=== PATIENT | female | born 1960 | race Caucasian/White ===

== ENCOUNTER 2021-01-01 09:04 | Outpatient (CLI) | payer BC, SELFPAY ==
--- NOTE | ~2021-01-01 | MM_ITS ---
EXAMINATION: MM screening [facility] BI w asher HISTORY: Screening mammogram TECHNIQUE: Craniocaudal and mediolateral oblique 3-D tomosynthesis images were obtained and synthetic 2-D images were generated. CAD analysis was submitted and interpreted. COMPARISON: Prior mammograms dating back to 09/14/2011 BREAST PARENCHYMAL COMPOSITION: There are scattered areas of fibroglandular density. FINDINGS: There is no evidence of suspicious mass, calcification, or architectural distortion to sugg est malignancy in either breast. There has been no suspicious interval change. IMPRESSION: 1. No mammographic evidence of malignancy. 2. Recommend routine screening mammography in one year. BI-RADS Category 1: Negative Reviewed, dictated and finalized at location A.
== END 2021-01-01 09:05 | disposition home or self-care (01) ==
LOC: ANHIMG 09:07
PROVIDERS: PCP Family Medicine; Visit Provider Nurse Practitioner
DX: Z12.31 Encounter for screening mammogram for malignant neoplasm of breast (principal)
CPT/HCPCS: 77063; 77067

== ENCOUNTER 2021-02-18 00:44 | Day surgery (SDC) | payer BC, SELFPAY ==
[2021-02-07 14:23] VITALS: BMI 32.5
--- NOTE | 2021-02-17 13:33 | WPDANESEPPF ---
Anes - Initial Pre Proc Eval Procedure: Operation Date: 02/18/21 08:00 Proposed Procedures p Screening Colonoscopy - Axel Truong MD Date/Time: 02/17/21 13:33 Surgeon: Axel Truong MD Pre Op Diagnosis: neoplasm screening Patient Data Age: 60 Gender: F Height: 1.69 m Weight: 93 kg Allergies Allergy/AdvReac Type Severity Reaction Status Date / Time Kiwi Allergy Severe THROAT Uncoded 02/18/21 06:45 SWELLING, ORAL RASH Home Medications Medication Instructions Recorded Confirmed Type arginine HCl (L-arginine) 1,000 mg 500 mg PO BID tablet 05/31/19 02/18/21 History tablet aspirin 81 mg tablet,delayed 81 mg PO ONCE tablet 05/31/19 02/18/21 History release metoprolol tartrate 25 mg tablet 25 mg PO BID tablet 05/31/19 02/18/21 History ergocalciferol (vitamin D2) 50,000 unit PO WEEKLY 02/07/21 02/18/21 History losartan-hydrochlorothiazide 1 tablet PO DAILY 02/07/21 02/18/21 History Patient hx anesthesia problems: none Family hx anesthesia problems: none PMFSH Past Medical History Medical History (Updated 02/17/21 @ 13:33 by Clarence Elias DO) Asthma Chronic pain of right knee Dyslipidemia Endothelial dysfunction of coronary artery Environmental allergies Essential (primary) hypertension History of colon polyps Hx of hemorrhoids 1984 DANYELLE (obstructive sleep apnea) CPAP Rosacea Stress fracture Right Knee Surgical History Surgical History History of bunionectomy 03/2018 - Left History of removal of cyst removed from Right ovary - 1988 Hx of cardiac cath 06/2017 Hx of hemorrhoidectomy 1980s Hx of removal of ovary Right - 1991 Family History Family History Grandparent Diabetes mellitus Family history of cardiovascular disease Sibling Hypertension Mother Family history of malignant neoplasm of ovary Social History Social History Smoking status: Never smoker Second hand tobacco smoke exposure: No Alcohol intake: current Drinks per week: 4 Alcohol use details: DRINKS Substance use: never Substance use type: marijuana Other substance usage details: COLLEGE Living arrangements: with family Additional living arrangements comments: Gender identity (if verbalized by the patient): Female Spiritual care concerns: No Anes - Eval Final PreProcedure Day of Procedure 02/17/21 13:33 Patient weight: obese Heart: regular rate and rhythm Lungs: clear to auscultation and normal air movement Airway: Mallampati scale class II Neurological: alert and oriented Last oral intake: >/= 8 hours ASA classification: III Emergent: no Anesthetic plan: proceed Anesthesia type and monitoring: general GIVS and standard monitoring Informed Consent: The patient's anesthetic plan and its attendant risks and benefits were discussed with the patient/family/POA. Questions were solicited and answers provided to the satisfaction of the patient/family/POA.
[2021-02-18 06:47] VITALS: BP 109/78; PULSE 56; RESP 17; TEMP 35.9; O2SAT 97; BMI 33.1
[2021-02-18] MEDS: LACTATED RINGERS 1,000 ML 150 ML IV CONT (06:52)
--- NOTE | 2021-02-18 08:19 | PM.HPGS ---
History of Present Illness History of Present Illness Consent: Risks, benefits, and alternatives have been discussed and questions answered. Patient agrees to proceed with procedure. Chief complaint: neoplasm screening Narrative: Kylee Davis is a 60 year old female here for screening colonoscopy, last one 2013 Review of Systems Constitutional: Constitutional: Denies headache(s) and Denies weakness Eyes: Eyes: Denies blurry vision ENT: Reports Normal hearing present, Denies headache(s) and Denies neck pain Cardiovascular: Cardiovascular: Denies chest pain and Denies dyspnea Respiratory: Respiratory: Denies dyspnea Gastrointestinal: Gastrointestinal: Reports no additional gastrointestinal complaints Genitourinary: Genitourinary: Denies dysuria Musculoskeletal: Musculoskeletal: Denies neck pain Integumentary/Breasts: Skin/Breast: Denies dry skin Neurologic: Reports Normal hearing present, Denies headache(s) and Denies weakness Psychiatric: Psychiatric: Denies anxiety Endocrine: Endocrine: Denies change in body appearance Hematologic/Lymphatic: Hematologic/Lymphatic: Denies easy bleeding Allergic/Immunologic: Allergic/Immunologic: Denies urticaria PMFSH Past Medical History Medical History (Updated 02/18/21 @ 08:20 by Axel Truong MD) Asthma Chronic pain of right knee Colon cancer screening Dyslipidemia Endothelial dysfunction of coronary artery Environmental allergies Essential (primary) hypertension History of colon polyps Hx of hemorrhoids 1984 DANYELLE (obstructive sleep apnea) CPAP Rosacea Stress fracture Right Knee Surgical History Surgical History History of bunionectomy 03/2018 - Left History of removal of cyst removed from Right ovary - 1988 Hx of cardiac cath 06/2017 Hx of hemorrhoidectomy Hx of removal of ovary Right - 1991 Family History Family History Grandparent Diabetes mellitus Family history of cardiovascular disease Sibling Hypertension Mother Family history of malignant neoplasm of ovary Social History Social History Smoking status: Never smoker Second hand tobacco smoke exposure: No Alcohol intake: current Drinks per week: 4 Alcohol use details: DRINKS Substance use: never Substance use type: marijuana Other substance usage details: COLLEGE Living arrangements: with family Additional living arrangements comments: Gender identity (if verbalized by the patient): Female Spiritual care concerns: No Meds Home Medications and Allergies Home Medications Medication Instructions Recorded Confirmed Type arginine HCl (L-arginine) 1,000 mg 500 mg PO BID tablet 05/31/19 02/18/21 History tablet aspirin 81 mg tablet,delayed 81 mg PO ONCE tablet 05/31/19 02/18/21 History release metoprolol tartrate 25 mg tablet 25 mg PO BID tablet 05/31/19 02/18/21 History ergocalciferol (vitamin D2) 50,000 unit PO WEEKLY 02/07/21 02/18/21 History losartan-hydrochlorothiazide 1 tablet PO DAILY 02/07/21 02/18/21 History Allergies Allergy/AdvReac Type Severity Reaction Status Date / Time Kiwi Allergy Severe THROAT Uncoded 02/18/21 06:45 SWELLING, ORAL RASH Vital Signs Vital Signs - 24 hr 02/18/21 06:47 Temperature 96.7 F L Pulse Rate 56 L Respiratory Rate 17 Blood Pressure 109/78 Pulse Oximetry 97 Exam Const: General: comfortable and no acute distress HENMT: General nose exam: Normal nares present Eyes: General: appearance normal, both eyes and all related structures Neck: Neck: no JVD Resp: Auscultation: clear to auscultation bilaterally Cardio: Rate: regular rate Rhythm: regular rhythm GI: Inspection: non-distended GI Palp: Yes Soft to palpation Skin: General skin exam: normal color Neuro:
[2021-02-18 08:37] VITALS: BP 100/51; PULSE 67; RESP 27; O2SAT 100
[2021-02-18 08:47] VITALS: BP 140/68; PULSE 44; RESP 18; O2SAT 100
[2021-02-18 08:57] VITALS: BP 136/75; PULSE 46; RESP 18; O2SAT 100
== END 2021-02-18 09:13 | disposition home or self-care (01) ==
PROVIDERS: PCP Family Medicine; Visit Provider Internal Medicine Gastroenterology
PROC: 0DJD8ZZ Inspection of Lower Intestinal Tract, Via Natural or Artificial Opening Endoscopic (ICD-10-PCS; CPT 45378; principal; 2021-02-18 08:00)
DX: Z12.11 Encounter for screening for malignant neoplasm of colon (principal); K57.30 Diverticulosis of large intestine without perforation or abscess without bleeding; K63.5 Polyp of colon; K64.8 Other hemorrhoids; J45.909 Unspecified asthma, uncomplicated; E78.5 Hyperlipidemia, unspecified; I10 Essential (primary) hypertension; G47.33 Obstructive sleep apnea (adult) (pediatric); L71.9 Rosacea, unspecified; F12.90 Cannabis use, unspecified, uncomplicated; Z79.82 Long term (current) use of aspirin; E66.9 Obesity, unspecified; Z68.33 Body mass index [BMI] 33.0-33.9, adult
CPT/HCPCS: 45385; 88305; J2704; J7120

== ENCOUNTER → 2022-12-22 09:56 | Outpatient (CLI) | payer BC, SELFPAY ==
--- NOTE | ~2022-12-22 | US_ITS ---
EXAMINATION: US pelvic complete w TV DATE: 12/22/2022 10:24 INDICATION: Family history of ovarian cancer TECHNIQUE: Multiple transabdominal and endovaginal sonographic images of the pelvis were obtained. COMPARISON: 04/26/2015 FINDINGS: The uterus measures 6.8 x 2.9 x 4.3 cm. The endometrial complex measures 3 mm. The left ova ry is surgically absent. No left adnexal abnormality is seen. The right ovary measures 2.0 x 1.4 x 0. 7 cm. There is normal vascular flow in the right ovary. There is no free fluid in the pelvis. IMPRESSION: 1. Unremarkable pelvic ultrasound post left oophorectomy. Reviewed, dictated and finalized at location L.
== END ==
PROVIDERS: PCP Family Medicine; Visit Provider Nurse Practitioner
DX: Z80.41 Family history of malignant neoplasm of ovary (principal)
CPT/HCPCS: 76830; 76856

== ENCOUNTER 2023-02-11 07:43 | Outpatient (CLI) | payer BC, SELFPAY ==
--- NOTE | ~2023-02-11 | MM_ITS ---
EXAMINATION: MM screening [facility] BI w asher HISTORY: Screening TECHNIQUE: Craniocaudal and mediolateral oblique 3-D tomosynthesis images were obtained and synthetic 2-D images were generated. CAD analysis was submitted and interpreted. COMPARISON: Comparison to multiple prior studies sequentially, with oldest reviewed study dated 12/11. BREAST PARENCHYMAL COMPOSITION: There are scattered areas of fibroglandular density. FINDINGS: There is no evidence of suspicious mass, calcification, or architectural distortion to sugg est malignancy in either breast. There has been no suspicious interval change. IMPRESSION: 1. No mammographic evidence of malignancy. 2. Recommend routine screening mammography in one year. BI-RADS Category 1: Negative Reviewed, dictated and finalized at location A.
== END 2023-02-11 07:44 | disposition home or self-care (01) ==
PROVIDERS: PCP Family Medicine; Visit Provider Nurse Practitioner
DX: Z12.31 Encounter for screening mammogram for malignant neoplasm of breast (principal)
CPT/HCPCS: 77063; 77067

== ENCOUNTER 2024-08-30 10:21 | Emergency (ER) | payer MEDICARE, SELFPAY ==
--- NOTE | ~2024-08-30 | XR_ITS ---
EXAMINATION: XR chest 2V DATE: 08/30/2024 10:45 INDICATION: Cough. TECHNIQUE: Frontal and lateral views of the chest were obtained. COMPARISON: None. FINDINGS: There is no pneumonia, pleural effusion, or pneumothorax. Cardiomegaly is noted. IMPRESSION: 1. Cardiomegaly. Reviewed, dictated and finalized at location A. MOGRAPH COMPUTER IMPRESSION: 1. Cardiomegaly.
[2024-08-30 10:30] VITALS: BP 148/81; PULSE 71; RESP 16; TEMP 36.2; O2SAT 97
--- NOTE | 2024-08-30 10:36 | ED_ITS ---
HPI - URI/Sore Throat General Chief Complaint: Upper Respiratory Infection Stated Complaint: COUGH Source: patient and RN notes reviewed Mode of arrival: ambulatory Limitations: no limitations History of Present Illness HPI Narrative: Patient is a 64-year-old female who presents to the [facility] with complaints of cough. States that the cough started on Wednesday and has continued to worsen severity. She reports a frequent nonproductive cough that is occasionally productive. She denies chest pain or shortness of breath. Denies nasal congestion, nasal drainage, sore throat. She does report a mild intermittent headache. Denies known fever. Unsure of any known sick contacts. Related Data Home Medications ?Medication ?Instructions ?Recorded ?Confirmed ?Last Taken ?Type arginine HCl (L-arginine) 1,000 mg 500 mg PO BID 05/31/19 11/03/22 02/17/21 History tablet metoprolol tartrate 25 mg tablet 25 mg PO BID 05/31/19 11/03/22 02/18/21 06:00 History aspirin 81 mg tablet,delayed 81 mg PO DAILY 04/30/21 11/03/22 Unknown History release fexofenadine 180 mg tablet 180 mg PO DAILY PRN 11/03/22 11/03/22 Unknown History ([facility] All[facility]) doxycycline hyclate 20 mg tablet 20 mg PO BID 03/21/24 Unknown History mupirocin 2 % topical ointment 1 applic topical PRN 03/21/24 Unknown History Allergies Allergy/AdvReac Type Severity Reaction Status Date / Time losartan AdvReac Mild Cough Verified 08/30/24 10:34 Kiwi Allergy Severe THROAT Uncoded 08/30/24 10:34 SWELLING, ORAL RASH Review of Systems Review of Systems: CONSTITUTIONAL: Denies fever, chills, or sweats. EYES: Denies visual changes, redness, or discharge. ENT: Denies otalgia and sore throat CARDIOVASCULAR: Denies chest pain, palpitations, or edema. RESPIRATORY: Reports cough but denies dyspnea. GASTROINTESTINAL: Denies abdominal pain, nausea, vomiting, or diarrhea. GENITOURINARY: Denies dysuria or hematuria. SKIN: Denies rash or itching. MUSCULOSKELETAL: Denies back pain, joint pain, or myalgia. NEUROLOGIC: Reports headache but denies numbness or weakness. Pertinent positives per HPI. [facility] Past Medical History Medical History Osteoarthritis Trigeminal herpes zoster (~08/2022) Left Mandibular dermatome Colon cancer screening Asthma History of colon polyps Endothelial dysfunction of coronary artery Environmental allergies DANYELLE (obstructive sleep apnea) CPAP Chronic pain of right knee Dyslipidemia Essential (primary) hypertension Stress fracture Right Knee Hx of hemorrhoids 1985 Rosacea Surgical History Surgical History History of knee replacement procedure of left knee (~2023) History of total right [facility]20[facility]x of hemorrhoidectomy (~[facility]) Hx of removal of ovary (~1991) Right - 1991 History of removal of cyst (~1988) removed from Right ovary - 1988 Hx of cardiac cath (~06/2017) 06/2017 History of bunionectomy (~03/2018) 03/2018 - Left Family History Family History Grandparent Diabetes mellitus Family history of cardiovascular disease Sibling Hypertension Mother Family history of malignant neoplasm of ovary Social History Social History Smoking status: Former smoker (quit @ 18) Second hand tobacco smoke exposure: No Alcohol intake: current Drinks per week: 4 Alcohol use details: DRINKS Substance use: never Substance use type: marijuana Other substance usage details: COLLEGE Lack of Transportation: No Lack of Food: Never True Current Housing: I Have Housing Concerned About Future Housing: No Difficulty Paying Gas/Electric Bills: No Difficulty Paying for Meds: No Currently Unemployed: No Education: Bachelor's Degree Difficulty w/ Childcare or Family Care: No Living arrangements: with family Additional living arrangements comments: Occupation/Education: occupation Gender identity (if verbalized by the patient): Female Sexual Orientation (if Verbalized by the Patient): Straight or Heterosexual Spiritual care concerns: No Comments At the time of my signature, I reviewed and agree with the nursing past medical, surgical, social, and family history. There is no relevant family history pertinent to the patient complaint. Exam Narrative: GENERAL: This is a well-nourished, well-developed patient, in no apparent distress. HEAD: normocephalic, atraumatic. EYES: Sclera clear/white. Vision is grossly intact. EARS: External ears normal, auditory canals clear and without drainage, TMs normal without perforation. Hearing grossly intact. NOSE: External nose normal with no obvious nasal discharge, nares without redness, no rhinorrhea. THROAT: Mucous membranes moist, posterior pharynx clear. NECK: Neck supple, non-tender without lymphadenopathy, masses or thyromegaly. CARDIOVASCULAR: Regular rate and rhythm without murmurs, gallops, or rubs. RESPIRATORY: Clear to auscultation. Breath sounds equal bilaterally. No wheezes, rales, or rhonchi. GASTROINTESTINAL: Abdomen soft, non-tender, nondistended. Bowel sounds are active. No hepato-splenomegaly, or palpable masses. No guarding. SKIN: warm, intact with no suspicious lesions or rash, good texture and turgor. NEURO: awake, alert, and oriented to person, place and time. There were no obvious focal neurologic abnormalities. Course Course Level of Care: Express Care Visit Vital Signs Vital signs: Vital Signs Temperature 97.2 F L 08/30/24 10:30 Pulse Rate 71 08/30/24 10:30 Respiratory Rate 16 08/30/24 10:30 Blood Pressure 148/81 H 08/30/24 10:30 Pulse Oximetry 97 08/30/24 10:30 Oxygen Delivery Room Air 08/30/24 10:30 Temperature 97.2 F L 08/30/24 10:30 Pulse Rate 71 08/30/24 10:30 Respiratory Rate 16 08/30/24 10:30 Blood Pressure 148/81 H 08/30/24 10:30 Pulse Oximetry 97 08/30/24 10:30 Oxygen Delivery Room Air 08/30/24 10:30 Reviewed MDM - URI/Sore Throat MDM Narrative Medical decision making narrative: Take steroids as directed. May use the inhaler every 4-6 hours as needed for coughing. Increase fluids at home. Avoid any and all smoke. May use a humidifier in the bedroom. Increase your Vitamin C. Follow-up with personal physician in 2-5 days. Differential Diagnosis Differential diagnosis: Likely upper respiratory infection, viral infection, influenza and other ( COVID, pneumonia) Lab Data Attestation: I reviewed the patient's lab results. Labs: Lab Results 08/30/24 Range/Units 10:53 POC Influenza A Ag Negative (Negative) POC Influenza B Ag Negative (Negative) POC SARS CoV-2 Ag Negative (Negative) Imaging Data Attestation: I personally reviewed and interpreted this imaging study as follows: Radiologist's impression: Express [facility] [facility] [place] [address] XRay Report Signed Patient: Kylee Davis : 1960 MR#: [id number] Age: 64 Acct:[id number] Loc: [id number] ADM Date: 08/30/24Attending Dr: Ordering Physician: Anai Jang APRN Date of Service: 08/30/24 Procedure(s): XR chest 2V Accession Number(s): [id number] cc: Anai Jang APRN; Bony Shelton MD~ EXAMINATION: XR chest 2V DATE: 08/30/2024 10:45 INDICATION: Cough. TECHNIQUE: Frontal and lateral views of the chest were obtained. COMPARISON: None. FINDINGS: There is no pneumonia, pleural effusion, or pneumothorax. Cardiomegaly is noted. IMPRESSION: 1. Cardiomegaly. Reviewed, dictated and finalized at location A. YCOMB DECAPPER Please be advised this is a medical document. It is intended for [id number] communication. It is written in medical language and may contain unfamiliar abbreviations or verbiage. Medical documents are intended to carry relevant information, facts as evident, and the clinical opinion of the practitioner at the time of the encounter. This report may have been done utilizing a voice recognition system. Attempts have been made to correct errors. However, there may be uncorrected grammatical, spelling, and recognition errors present. The file time of this note does not necessarily represent the time of service. Dictated By: Augie Lind MD 08/30/24 1046 Signed By: <Electronically signed by Augie Lind MD in OV> 08/30/24 1047 Critical Care Time Critical Care Time Critical Care Time: No Discharge Plan Discharge Clinical Impression: Acute viral bronchitis Patient Disposition: Home, Self-Care Condition: Stable Instructions: Acute Bronchitis (ED) Additional Instructions: Take steroids as directed. May use the inhaler every 4-6 hours as needed for coughing. Increase fluids at home. Avoid any and all smoke. May use a humidifier in the bedroom. Increase your Vitamin C. Follow-up with personal physician in 2-5 days. Patient Language: Wallisian Prescriptions: New prednisone 50 mg tablet 50 mg PO DAILY 5 Days Qty: 5 0RF albuterol sulfate [Ventolin HFA] 90 mcg/actuation HFA aerosol inhaler 2 puff inhalation QID PRN (Reason: shortness of breath or wheezing) Qty: 8.5 0RF benzonatate 100 mg capsule 100 mg PO BID PRN (Reason: cough) Qty: 20 0RF No Action metoprolol tartrate 25 mg tablet 25 mg PO BID arginine HCl (L-arginine) 1,000 mg tablet 500 mg PO BID Rx Instructions: per cardioloist aspirin 81 mg tablet,delayed release (DR/EC) 81 mg PO DAILY fexofenadine [[facility] Allergy] 180 mg tablet 180 mg PO DAILY PRN doxycycline hyclate 20 mg tablet 20 mg PO BID mupirocin 2 % ointment 1 applic topical PRN rosuvastatin [Crestor] 10 mg tablet 10 mg PO QHS Qty: 90 1RF amlodipine 5 mg tablet 5 mg PO DAILY Qty: 90 0RF Follow-up/Referrals: Sanam Shelton MD [Primary Care Provider] - Time of Disposition: 10:57
[2024-08-30 10:54] LABS: EDCOVIDSCREEN Negative (Negative); EDINFLUASCREEN Negative (Negative); EDINFLUBSCREEN Negative (Negative)
== END 2024-08-30 11:00 | disposition home or self-care (01) ==
PROVIDERS: Emergency Provider Nurse Practitioner; PCP Family Medicine
DX: J20.8 Acute bronchitis due to other specified organisms (principal); Z20.822 Contact with and (suspected) exposure to COVID-19; Z87.891 Personal history of nicotine dependence; J45.909 Unspecified asthma, uncomplicated; G47.33 Obstructive sleep apnea (adult) (pediatric); I10 Essential (primary) hypertension; E78.5 Hyperlipidemia, unspecified; M19.90 Unspecified osteoarthritis, unspecified site; L71.9 Rosacea, unspecified; Z79.82 Long term (current) use of aspirin; Z96.653 Presence of artificial knee joint, bilateral
CPT/HCPCS: 71046; 87426; 87804; 99213; G0463

== ENCOUNTER 2025-01-09 08:10 | Outpatient (CLI) | payer MEDICARE, SELFPAY ==
--- NOTE | ~2025-01-09 | MM_ITS ---
EXAMINATION: MM screening abigail BI w asher HISTORY: Screening TECHNIQUE: Craniocaudal and mediolateral oblique 3-D tomosynthesis images were obtained and synthetic 2-D images were generated. CAD analysis was submitted and interpreted. COMPARISON: Comparison to multiple prior studies sequentially, with oldest reviewed study dated 03/12. BREAST PARENCHYMAL COMPOSITION: Not dense: There are scattered areas of fibroglandular density. FINDINGS: There is no evidence of suspicious mass, calcification, or architectural distortion to sugg est malignancy in either breast. There has been no suspicious interval change. IMPRESSION: 1. No mammographic evidence of malignancy. 2. Recommend routine screening mammography in one year. BI-RADS Category 1: Negative Reviewed, dictated and finalized at location []
--- OUTSIDE RECORDS SUMMARY | 2025-01-09 08:21 | XMS_ITS | Data Portability ---
Author Organization [facility] (11) Address [address] [facility] [address] [place] [address] Assessment Encounter Date Assessment Date Assessment LastModified by Organization Details LastModified Time 08/03/2016 08/03/2016 Patient was diagnosed with a obstructive sleep apnea and was placed on 7 cm of CPAP. She has mild sleep apnea on the side but severe on the back. She was not comfortable with the nasal mask so she did not use it. Now she is starting to use it. She also says that her nose runs after several days of use. I have told her to start on Flonase nasal spray. She is not using the heated humidifier I have told her to start back on it starting at one. [email or web address] Not available 08/03/2016 17:41:55 Plan of Treatment Reminders Order Date Submit Date Provider Last Modified By Organization Details Last Modified Time Details Appointments None record ed. Lab None record ed. Referral None record ed. Procedures None record ed. Surgeries None record ed. Imaging None record ed. Medication Orders None record ed. Patient TargetsNo targets recorded. Patient InstructionsNo instructions recorded. Reason for Referral None Reported. Problems Name Problem SNOMED Code Status Onset Date Resolution Date Notes Provider Name and Address Organization Details Recorded Time Obstructive sleep apnea syndrome 27950985 Active 017 BRYN MIR MD, DAB, F.C.C.P. NPI [id number] [address] [facility] [address], [place], [address], [facility] [employer]/[facility] 7 17:12:18 Problem Notes None recorded. Medical Equipment None Reported. Allergies No known drug allergies Medications Name Sig Start Date Stop Date Status Note LastModified by Organization Details LastModified Time Hyzaar 50 mg-12.5 mg tablet Take 1 tablet every day by oral route. active Not Available Not Available No t Available Metrogel 1 % topical active Not Available Not Available No t Available Soolantra 1 % topical cream active Not Available Not Available Not Available Vitals Date Recorded Body height Body weight Body mass index (BMI) Oxygen saturation Oxygen saturation in Arterial blood by Pulse oximetry Heart rate Respiratory rate Systolic And Diastolic Provider Name and Address Organization Details Last Updated DateTime 7 170.18 cm 65393.5 9 g 29 kg/m2 97 % 97 % 59 /min 16 /min 140/90 mm[Hg] BYRN MIR MD, HARRIETT F.C.C.P. NPI [id number] [address] [place] [address], [phone] 7 17:39:34 Social History Question Answer Notes LastModified by Organizat ion Details LastModified Time Tobacco Smoking Status Former Smoker BRYN MIR MD, HARRIETT F.C.C.P. [address] [place] [address], [phone] [place] [address]/KV/[facility] 08/03/2016 17:13:45 What Is Your Level Of Caffeine Consumption? Heavy Information not available 08/03/2016 Marital Status Informatio n not available 08/03/2016 How Many Children Do You Have? 2 Information not available 08/03/2016 Sex: Unknown Functional Status Question Answer Note LastModified by Organization D etails LastModified Time What is your level of alcohol consumption? Moderate Information not available 08/03/2016 Mental Status None recorded. Family History Nothing Reported. Medical History Condition Response Hypertension Y Sleep Apnea Y Gynecological HistoryNo gynecological history recorded. Obstetrics History GPAL:G 0 P 0 0 0 0 Past Encounters Encounter ID Performer Location Encounter Start Date Encounter Closed Date Diagnosis/Indication Diagnosis SNOMED-CT Code Diagnosis ICD10 Code Diagnosis Note [id number] BRYN MIR MD, HARRIETT F.C.C.P. [facility] [phone]) [address] [place] [address] 08/03/2016 16:27:47 08/03/2016 17:45:18 Obstructive sleep apnea of adult 0603746651 103 G47.33 [id number] [facility] [place], [facility] (49) [id number] [place] [address] 08/07/2016 09:43:40 08/07/2016 09:57:45 Obstructive sleep apnea of adult 2872715098 103 G47.33 Health Concerns Section Related Observation LastModified by Organization Detai ls LastModified Time None Recorded Concern Status LastModified by Organization Details LastModified Time None Recorded Advance Directives Directive None Recorded Payers Insurance Date Sequence Insurance Name Policy Number Policy Goel Covered Member ID Goel Member ID Guarantor Name 08/07/2016 1 [place] [id number] Kylee Davis [id number] Kylee Davis Notes Date Note Type Note Provider Name and Address Organization Details Recorded Time 7 text/html Sleep History-Reported bypatient.The patient presents with chief complaint ofsnoring; witnessed sleep apnea; On CPAP. It is stated thatshe goes to bed around 9 PM; usually falls asleep within 10 min The patient arises in the morning feelingat approximately 4 AM Awakening at nightapproximately 1 per/night The patientdoes not snore Witnessed apneas, gasping for breathhave not been noted The patient iscurrently working as; During the day she is usually alert The patient reports thatshe sometimes During quiet activities (e.g. reading, watching TV)the patient does not fall asleep easily; There is no history of napping During drivingand has not nodded off while driving; There have not been fall asleep accidents The [place] SleepinessScore is 8 (Normal is less than 10) The patientdoes not awaken with morning headaches There isno awakening with chest pain Therehave not been problems with concentration memory difficulties Symptoms ofleg restlessness are not experienced The patient reportsno history of sleep paralysis hypnagogic hallucinations cataplexy Restless sleephas not been noted; and kicking at night has not been noted The patientconsumes alcohol The patientreports that she smoked cigarettes but stopped smoking years ago Weightgain is reported Other medical problems includehypertension The patient reports that thereis not a family history of a sleep disorder. BRYN MIR MD, HARRIETT, F.C.C.P. [address] [address], [place], [address], [facility] [place] - [place]/[facility]/[facility] 08/03/2016 17:42:14 OBGyn Episode No OBEpisode recorded.
--- OUTSIDE RECORDS SUMMARY | 2025-01-09 08:21 | XMS_ITS | Clinical Summary ---
Author Organization [facility] Address [address] [place] [address] Care Team Providers Care Precision Lathe Operator Name Role Phone Bony Shelton MD Primary Care Provider Allergies Active Allergy Reactions Criticality Noted Date Comments Kiwi Hives,Swelling Medium 10/14/2021 Medications amLODIPine (NORVASC) 5 mg tabletIndication s:hypertension Take 1 tablet (5 mg total) by mouth every morning 2 Active rosuvastatin (CRESTOR) 10 mg tabletIndication s:coronary artery disease Take 1 tablet (10 mg total) by mouth nightly 2 Active metoprolol tartrate (LOPRESSOR) 25 mg immediate release tabletIndication s:hypertension Take 1 tablet (25 mg total) by mouth 2 (two) times a day 2 Active cholecalciferol, vitamin D3, (VITAMIN D3 ORAL)Indications :gummies supplement Take 2 tablets by mouth nightly Active arginine 500 mg tabletIndication s:endothelial dysfunction of coronart artery Take 1 tablet (500 mg total) by mouth 2 (two) times a day Active triamcinolone (KENALOG) 0.1 % ointmentIndicati ons:eczema to left knee Apply 1 Application topically every morning 4 Active cetirizine (ZyrTEC) 10 mg tablet Take 1 tablet (10 mg total) by mouth daily as needed for allergies Active diphenhydrAMINE 25 mg capsule Take 1 tablet/capsule (25 mg total) by mouth nightly as needed for allergies Active ergocalciferol (VITAMIN D) 50,000 unit capsule TAKE 1 CAP 2 X A WEEK FOR 8 WEEKS THEN FOLLOW UP WITH YOUR PCP. 16 capsule 4 Active traMADoL (ULTRAM) 50 mg tablet Take 1 tablet (50 mg total) by mouth every 6 (six) hours as needed for pain 30 tablet 4 Active oxyCODONE (ROXICODONE) 5 mg immediate release tabletIndication s:Pain Take 1 tablet (5 mg total) by mouth every 4 (four) hours as needed for pain 30 tablet 4 Active pregabalin (LYRICA) 75 mg capsule Take 1 capsule (75 mg total) by mouth 2 (two) times a day 30 capsule 4 Active acetaminophen (TYLENOL) 500 mg tablet Take 2 tablets (1,000 mg total) by mouth every 8 (eight) hours 90 tablet 1 4 Active aspirin 81 mg enteric coated tabletIndication s:prevention of thrombosis Take 1 tablet (81 mg total) by mouth 2 (two) times a day 60 tablet 4 Active senna-docusate (Senna-S) 8.6-50 mg Take 2 tablets by mouth 2 (two) times a day 80 tablet 1 4 Active meloxicam (MOBIC) 7.5 mg tablet Take 1 tablet (7.5 mg total) by mouth daily 30 tablet 4 Active amoxicillin 500 mg tablet/capsuleIn dications:Prophy laxis, Medical TAKE 4 PILL 1 HOUR BEFORE DENTAL APPOINTMENT. 4 tablet/capsu le 3 4 Active Active Problems Problem Noted Date Diagnosed Date HTN (hypertension) 10/19/2023 HLD (hyperlipidemia) 10/19/2023 DANYELLE on CPAP 10/19/2023 Class 2 obesity in adult 10/19/2023 Primary osteoarthritis of left knee 07/26/2023 Arthritis of right knee 06/02/2022 Primary osteoarthritis of right knee 02/25/2022 Overview (02/25/2022): Added automatically from request for surgery [id number] Encounters Date Type Department Care Team Description 01/03/2025 8:50 AM CDT Office Visit [facility] Orthopaedic Surgery [address] [place] [address] Medical Office Building [address] [place] [address] Jakob Velarde MD Aftercare following bilateral knee joint replacement surgery (Primary Dx) 01/03/2025 8:02 AM CDT - 01/03/2025 11:59 PM CDT Hospital Encounter [id number] [address] [facility] [address] [place] [phone] Aftercare following left knee joint replacement surgery Discharge Disposition: Discharge to home or self care from Last 3 Months Immunizations Immunization Administration Dates Next Due Influenza, Quadrivalent, Spl it, Preservative Free, Intramuscular 03/25/2020,05/06/2018 Influenza, Trivalent, IM (MDV) 03/30/2021 Influenza, Trivalent, Preservative Free, Intramu scular 04/07/2016 Tdap 04/05/2019 ZOSTER Recombinant 06/24/2020,03/25/2020 Surgical History Surgery Date Site/Laterality Comments FOOT SURGERY OOPHERECTOMY ABDOMINAL SURGERY Left ovary & tube removed KNEE ARTHROPLASTY Right Medical History Medical History Date Comments Hypertension Hypercholesteremia Arthritis osteoarthritis - approx 10 years ago Sleep apnea approx. 10 years ago Endothelial dysfunction of c oronary artery Family History Medical History Relation Name Comments Cancer Mother Stella Muniz Hypertension Sister Sabrina Durham Anesthesia problems Neg Hx Relation Name Status Comments Mother Stella Muniz Sister Sabrina Durham Social History Tobacco Use Types Packs/Day Years Used Date Smoking Tobacco: Former Cigarettes 0.3 4 1 978 - 1982 Passive Smoke Exposure: Current Smokeless Tobacco: Never Tobacco Cessation:Counseling Given: Not Answered AUDIT-C Answer Date Recorded Q1: How often do you have a drink containing alc ohol? 2-3 times a week 10/26/2023 Q2: How many drinks containi ng alcohol do you have on a typical day when you are drinking? 1 or 2 10/26/2023 Q3: How often do you have si x or more drinks on one occasion? Never 10/26/2023 Personal Safety Answer Date Recorded Have you ever been in or are you currently in a harmful physical or emotional relationship or is someone making you feel afraid or unsafe? Denies 10/26/2023 Comments No Sex and Gender Information Value Date Recorded Sex Assigned at Not on file Legal Sex Female 12:21 AM KINDERGARTNER Gender Identity Female 08/29/2024 8:15 AM KINDERGARTNER Sexual Orientation Not on file Obstetrics History Last Filed Vital Signs Vital Sign Reading Time Taken Comments Blood Pressure 152/80 10/26/2023 3:05 PM CDT Pulse 61 10/26/2023 3:05 PM CDT Temperature 36 C (96.8 F) 10/26/2023 12:45 PM CDT Respiratory Rate 12 10/26/2023 3:05 PM CDT Oxygen Saturation 94% 10/26/2023 3:05 PM CDT Inhaled Oxygen Concentration - - Weight 99.3 kg (219 lb) 10/26/2023 9:32 AM CDT Height 167.6 cm (5' 6) 10/26/2023 9:32 AM CDT Body Mass Index 35.35 10/26/2023 9:32 AM CDT Plan of Treatment Health Maintenance Due Date Last Done Comments Breast Cancer Screening-Mammogram 1958 Colon Cancer Screening-Colonoscopy 1960 Depression Screening 1958 Hepatitis C Screening 1960 Osteoporosis Screening-Bone Density Scan 1958 Hepatitis B Screening 1976 Pneumococcal vaccine 65+ (1 of 1 - PCV) 2008 Well Visit 65+ 2023 Covid-19 Vaccine (5 - 2023-2 5 season) 2024 10/03/2021, 05/07/2021, 09/24/2020, Additional history exists Fall Risk Assessment 10/25/2024 10/26/2023 Influenza Vaccine (#1) 2025 , 03/25/2020, 05/06/2018, Additional history exists DTaP/Tdap/Td Vaccine (2 - Td or Tdap) 04/05/2029 04/05/2019 Zoster Vaccine Completed 06/24/2020, 03/25/2020 Medical Devices Implanted Type Area Mobile Application Tester Device Identifier Shelf Expiration Date Model / Serial / Lot Pins Left: Toes Description:L great toe [employer] Insert Attune Right Medial Stabilized Size 6 5mm [id number] - [id number] Implanted:Qty: 1 on 06/02/2022 by Jakob Velarde MD at [facility] Right: Knee [employer] [id number] 02/25/2030 [id number] / / [id number] Description:Implant pause pe rformed [employer] Attune Fb Tib Base Sz 5 Por [id number] - [id number] Implanted:Qty: 1 on 06/02/2022 by Jakob Velarde MD at [facility] Right: Knee [employer] [id number] 12/26/2031 [id number] / / [id number] Description:Implant pause pe rformed [employer] Attune Cruciate Retain Cementless Knee Right 6 Narrow Component [id number] - [id number] Implanted:Qty: 1 on 06/02/2022 by Jakob Velarde MD at [facility] Right: Knee [employer] [id number] 07/28/2031 [id number] / / [id number] Description:Implant pause pe rformed [employer] Attune Fb Tib Base Sz 5 Por [id number] - [id number] Implanted:Qty: 1 on 10/26/2023 at [facility] Left: Knee [employer] 07/28/2032 [id number] / / [id number] [employer] Attune Cruciate Retain Cementless Knee Left 6 Narrow Component [id number] - [id number] Implanted:Qty: 1 on 10/26/2023 at [facility] Left: Knee [employer] 12/25/2032 [id number] / / [id number] [employer] Insert Attune Left Medial Stabilized Size 6 7mm [id number] - [id number] Implanted:Qty: 1 on 10/26/2023 at [facility] Left: Knee [employer] 06/27/2031 [id number] / / [id number] Procedures Procedure Name Priority Date/Time Associated Diagnosis Comments XR KNEE LEFT 3 VIEWS Schedule Routine, Read Routine (OP Routine) 01/03/2025 8:15 AM CDT Aftercare following left knee joint replacement surgery from Last 3 Months Results * XR Knee Left 3 Views (01/03/2025 8:15 AM CDT) Anatomical Region Laterality Modality Lower Extremities, Knee Left Computed Radiography 01/03/2025 9:28 AM CDT Impressions 01/03/2025 5:09 PM CDT Unchanged 2-component total knee arthroplasty in both knees in near anatomic alignment with interval decrease in soft tissue swelling and joint effusion. Dictated by: Kevon Cummins MD The radiology attending physician has personally reviewed this study, and had reviewed and/or edited this written report and agrees with it. Electronically signed by: Brandt Epstein MD Narrative 01/03/2025 5:09 PM CDT EXAMINATION: XR KNEE LEFT 3 VIEWS HISTORY: Pain FINDINGS: 3 radiographs of the left knee are submitted. Comparison is made to knee radiographs dated 11/24/2023. There is unchanged 2-component total knee arthroplasty in both knees in near-anatomic alignment. There is no periprosthetic fracture or osteolysis. Interval decrease in soft tissue swelling and joint effusion. Procedure Note Mary Kay Epstein MD - 01/03/2025 EXAMINATION: XR KNEE LEFT 3 VIEWS HISTORY: Pain FINDINGS: 3 radiographs of the left knee are submitted. Comparison is made to knee radiographs dated 11/24/2023. There is unchanged 2-component total knee arthroplasty in both knees in near-anatomic alignment. There is no periprosthetic fracture or osteolysis. Interval decrease in soft tissue swelling and joint effusion. IMPRESSION: Unchanged 2-component total knee arthroplasty in both knees in near anatomic alignment with interval decrease in soft tissue swelling and joint effusion. Dictated by: Kevon Cummins MD The radiology attending physician has personally reviewed this study, and had reviewed and/or edited this written report and agrees with it. Electronically signed by: Brandt Epstein MD Jakob Velarde MD IMG XR PROCEDURES Final R esult from Last 3 Months Insurance MEDICARE [facility] [place] CHOICE MEDICARE [employer] [facility] ACCESS CHOICE Care Teams Precision Lathe Operator Relationship Specialty Start Date End Date Bony Shelton MD PCP - General Family Practice 09/19/21
--- OUTSIDE RECORDS SUMMARY | 2025-01-09 08:21 | XMS_ITS | Referral Summary ---
Author Organization [facility] Address [address] [place] [phone] Care Team Providers Care Business Applications Developer Name Role Phone Bony Shelton MD Primary Care Provider Encounters Date Type Department Care Team Description 01/03/2025 8:02 AM CDT - 01/03/2025 11:59 PM CDT Hospital Encounter [id number] [address] [place] [address] [address] [place] [address] Aftercare following left knee joint replacement surgery Discharge Disposition: Discharge to home or self care 01/03/2025 8:50 AM CDT Office Visit [facility] Orthopaedic Surgery [address] [place] [address] Medical Office Building [address] [place] [address] Jakob Velarde MD Aftercare following bilateral knee joint replacement surgery (Primary Dx) from Last 3 Months Allergies Active Allergy Reactions Criticality Noted Date [...] BEFORE DENTAL APPOINTMENT. 4 tablet/capsu le 3 Active Active Problems Problem Noted Date Diagnosed Date HTN (hypertension) 10/19/2023 HLD (hyperlipidemia) 10/19/2023 DANYELLE on CPAP 10/19/2023 Class 2 obesity in adult 10/19/2023 Primary osteoarthritis of left knee 07/26/2023 Arthritis of right knee 06/02/2022 Primary osteoarthritis of right knee 02/25/2022 Overview (02/25/2022): Added automatically from request for surgery [id number] Immunizations Immunization Administration Dates Next Due Influenza, Quadrivalent, Spl it, Preservative Free, Intramuscular 03/25/2020,05/06/2018 Influenza, Trivalent, IM (MDV) 03/30/2021 Influenza, Trivalent, Preservative Free, Intramu scular 04/07/2016 Tdap 04/05/2019 ZOSTER Recombinant 06/24/2020,03/25/2020 Social History Tobacco Use Types Packs/Day Years Used Date Smoking Tobacco: Former Cigarettes 0.3 4 1 978 - 1981 Passive Smoke Exposure: Current Smokeless Tobacco: Never [...] on file Legal Sex Female 12:21 AM ACID REGENERATOR Gender Identity Female 08/29/2024 8:15 AM ACID REGENERATOR Sexual Orientation Not on file Last Filed Vital Signs Vital Sign Reading [...] 10/26/2023 9:32 AM CDT Plan of Treatment Not on file Medical Devices Implanted Type Area Picker Feeder Device Identifier Shelf Expiration Date Model / Serial / Lot Pins Left: Toes Description:L great toe [employer] Insert Attune Right Medial Stabilized Size 6 5mm [id number] - [id number] Implanted:Qty: 1 on 06/02/2022 by Jakob Velarde MD at [facility] Right: Knee [employer] [id number] 02/25/2030 [id number] / / [id number] Description:Implant pause pe rformed [employer] Attune Fb Tib Base Sz 5 Por [id number] - [id number] Implanted:Qty: 1 on 06/02/2022 by Jakob Velarde MD at [facility] Right: Knee [employer] [id number] 12/26/2031 [id number] / / [id number] Description:Implant pause pe rformed [employer] Attune Cruciate Retain Cementless Knee Right 6 Narrow Component [id number] - [id number] Implanted:Qty: 1 on 06/02/2022 by Jakob Velarde MD at [facility] Right: Knee [employer] [id number] 07/28/2031 [id number] / / [id number] Description:Implant pause pe rformed [employer] Attune Fb Tib Base Sz 5 Por [id number] - [id number] Implanted:Qty: 1 on 10/26/[address] [facility] Left: Knee [employer] 07/28/2032 [id number] / / [id number] [employer] Attune Cruciate Retain Cementless Knee Left 6 Narrow Component [id number] - [id number] Implanted:Qty: 1 on 10/26/[address] [facility] Left: Knee [employer] 12/25/2032 [id number] / / [id number] [employer] Insert Attune Left Medial Stabilized Size 6 7mm [id number] - [id number] Implanted:Qty: 1 on 10/26/[address] [facility] Left: Knee [employer] 06/27/2031 [id number] / / [id number] Procedures Procedure Name Priority [...] esult from Last 3 [place] [address] [facility] [place] [address] [facility] Care Teams Business Applications Developer Relationship Specialty Start Date End Date Bony Shelton MD PCP - General Family Practice 09/19/21
== END 2025-01-09 08:11 | disposition home or self-care (01) ==
LOC: ANHIMG 08:12
PROVIDERS: PCP Family Medicine; Visit Provider Obstetrics & Gynecology Gynecology
DX: Z12.31 Encounter for screening mammogram for malignant neoplasm of breast (principal)
CPT/HCPCS: 77063; 77067

== ENCOUNTER 2025-03-19 11:06 | Outpatient (CLI) | payer MEDICARE, SELFPAY ==
--- NOTE | ~2025-03-19 | DEXA_ITS ---
Bone Density Report Name: CLAIR PRIETO Age: 64 Sex: Female Ethnicity: White Date of : 1960 Indication: postmenopausal; screening for osteoporosis; height loss; Referring Provider: TE VALENTINO Study: Bone densitometry was performed. Exam Date: March 19, 2025 Accession number: [id number] Bone Density: Region BMD T-score Z-score Classification AP Spine(L1-L4) 1.067 0.2 2.1 Normal Femoral Neck (Left) 0.874 0.2 1.8 Normal Total Hip (Left) 0.960 0.2 1.5 Normal Femoral Neck (Right) 0.872 0.2 1.8 Normal Total Hip (Right) 0.992 0.4 1.7 Normal Total Hip Mean 0.976 0.3 1.6 Normal World Health Organization criteria for BMD impression classify patients as: Normal (T-score at or above -1.0), Osteopenia (T-score between -1.0 and -2.5), or Osteoporosis (T-score at or below -2.5). 10-year Fracture Risk: FRAX not reported because: All T-scores for Spine Total, Hip Total, Femoral Neck at or above -1.0 Previous Exams: Region Exam Age BMD T-score BMD Change BMD Change Date g/cm2 vs Baseline vs Previous AP Spine (L1-L4) 03/19/2025 64 1.067 0.2 -0.012 (-1.2%) -0.012 (-1.2%) 12/01/2018 58 1.080 0.3 Total Hip(Left) 03/19/2025 64 0.960 0.2 -0.017 (-1.8%) -0.017 (-1.8%) 12/01/2018 58 0.978 0.3 Total Hip(Right) 03/19/2025 64 0.992 0.4 -0.047 (-4.6%) -0.047 (-4.6%) 12/01/2018 58 1.039 0.8 *Denotes significance at 95% confidence level, LSC for AP Spine = 0.022 g/cm2, LSC for Total Hip = 0.027 g/cm2 Clinical Information Provided by Patient: Has used the following medications: Vitamin D Patient maximum height was 67.0 Menopause Age: 49 Drinks caffeinated beverages Onset of menses at age 12 Number of children 2 Impression: The patient has normal bone mass. The BMD for the Total Hip(Right) decreased, changing by -4.6% since the last DXA exam. Discussion: LOW RISK OF FRACTURE; BONE DENSITY IS WELL ABOVE THE MINIMUM DESIRABLE LEVEL AND ABOVE AVERAGE FOR AGE AND SEX AT ALL SKELETAL SITES TESTED. This person's bone density is above expected limits for age and sex. This is rarely clinically significant, but should be pursued if there are significant musculoskeletal complaints. The patient should follow a healthful lifestyle (good nutrition with adequate calcium and vitamin D, and appropriate weight-bearing exercise). Follow-Up: Consider repeating this study in 3 to 4 years to reassess this patient's status, or sooner if there is some new clinical indication. Reported by: AL on 03/19/2025 12:00:00 PM. Reviewed, dictated and finalized at location A.
--- OUTSIDE RECORDS SUMMARY | 2025-03-19 12:20 | XMS_ITS | Clinical Summary ---
Author Organization [facility] Address [address] [place] [address] Care Team Providers Care Online Advertising Manager Name Role Phone Bony Shelton MD Primary [...] (02/25/2022): Added automatically from request for surgery [id number] Encounters Date Type Department Care Team Description 01/03/2025 8:50 AM CDT Office Visit [facility] Medicine Orthopaedic Surgery [address] [place] [address] Jakob Velarde MD Aftercare following bilateral knee joint replacement surgery (Primary Dx) 01/03/2025 8:02 AM CDT - 01/03/2025 11:59 PM CDT Hospital Encounter [id number] [address] [place] [id number] Aftercare following left knee joint replacement surgery [...] on file Legal Sex Female 12:21 AM RETAIL AIDE Gender Identity Female 08/29/2024 8:15 AM RETAIL AIDE Sexual Orientation Not on file Obstetrics History [...] - PCV) 2008 Well Visit 65+ 2023 Fall Risk Assessment 10/25/2024 10/26/2023 Covid-19 Vaccine (5 - 2024-2 6 season) 2025 10/03/2021, 05/07/2021, 09/24/2020, Additional history exists Influenza Vaccine (#1) 2025 , 03/25/2020, 05/06/2018, Additional history exists DTaP/Tdap/Td Vaccine (2 - Td or Tdap) 04/05/2029 04/05/2019 Zoster Vaccine Completed 06/24/2020, 03/25/2020 Medical Devices Implanted Type Area Vice President Payment Device Identifier Shelf Expiration Date Model / Serial / Lot Pins Left: Toes Description:L great toe [employer] Insert Attune Right Medial Stabilized Size 6 5mm [id number] - [id number] Implanted:Qty: 1 on 06/02/2022 by Jakob Velarde MD at [facility] Right: Knee [employer] [id number] 02/25/2030 [id number] / / [id number] Description:Implant pause pe rformed [employer] Attune Fb Tib Base Sz 5 Por [id number] - [id number] Implanted:Qty: 1 on 06/02/2022 by Jakob Velarde MD at [facility] Right: Knee [employer] [id number] 12/26/2031 [id number] / / [id number] Description:Implant pause pe rformed [employer] Attune Cruciate Retain Cementless Knee Right 6 Narrow Component [id number] - [id number] Implanted:Qty: 1 on 06/02/2022 by Jakob Velarde MD at [facility] Right: Knee [employer] [id number] 07/28/2031 [id number] / / [id number] Description:Implant pause pe rformed [employer] Attune Fb Tib Base Sz 5 Por [id number] - [id number] Implanted:Qty: 1 on 10/26/2023 at [facility] Left: Knee [employer] 07/28/2032 [id number] / / [id number] [employer] Attune Cruciate Retain Cementless Knee Left 6 Narrow Component [id number] - [id number] Implanted:Qty: 1 on 10/26/2023 at [facility] Left: Knee [employer] 12/25/2032 [id number] / / [id number] [employer] Insert Attune Left Medial Stabilized Size 6 7mm [id number] - [id number] Implanted:Qty: 1 on 10/26/2023 at [facility] Left: Knee [employer] 06/27/2031 [id number] / / [id number] Procedures Procedure Name Priority [...] esult from Last 3 Months Insurance [facility] [employer] Card CHOICE MEDICARE [employer] ACCESS CHOICE Care Teams Online Advertising Manager Relationship Specialty Start Date End Date Bony Shelton MD PCP - General Family Practice 09/19/21
== END 2025-03-19 11:07 | disposition home or self-care (01) ==
LOC: ANHFOHIMG 11:07
PROVIDERS: PCP Family Medicine; Visit Provider Obstetrics & Gynecology Gynecology
DX: Z78.0 Asymptomatic menopausal state (principal); Z13.820 Encounter for screening for osteoporosis
CPT/HCPCS: 77080